=== PATIENT | male | born 1985 | race Caucasian/White ===

== ENCOUNTER 2017-07-10 22:39 | Emergency (ER) | payer MEDICAID, OTHER ==
--- NOTE | 2017-07-10 22:59 | ED PDOC ---
Arrival/HPI - General Chief Complaint: Substance Abuse Time Seen by Provider: 07/10/17 22:41 Historian: Patient - History of Present Illness Narrative History of Present Illness (Text): 07/10/17 22:58 Willy Lawton is a 31 year old male who presents to the Emergency department brought in by EMS for possible overdose tonight. As per EMS, patient was found slumped over in his car unresponsive. Patient was given Narcan in the field with immediate improvement. Patient awake, alert, and oriented x3 on arrival to Emergency department. 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 Patient denies any substance abuse tonight. Patient regularly takes Risperdal, Depakote , Ativan, and Ambien. Patient denies any fever, chills, chest pain, shortness of breath, diarrhea, urinary symptoms, back pain, neck pain, headache, dizziness , or any other complaints. Symptom Onset: Gradual Symptom Course: Unchanged Activities at Onset: Light Context: Home Past Medical History - Provider Review Nursing Documentation Reviewed: Yes - Past History Past History: No Previous - Infectious Disease Hx of Infectious Diseases: None - Tetanus Immunization Tetanus Immunization: Unknown - Past Medical History Past Medical History: No Previous - Psychiatric Hx Bipolar Disorder: Yes Hx Depression: No Hx Substance Use: No - Past Surgical History Past Surgical History: No Previous - Anesthesia Hx Anesthesia: No - Suicidal Assessment Feels Threatened In Home Enviroment: No Family/Social History - Physician Review Nursing Documentation Reviewed: Yes Family/Social History: Unknown Family HX Smoking Status: Current Some Days Smoker Hx Alcohol Use: No Hx Substance Use: No Substance used: denies use Hx Substance Use Treatment: No Allergies/Home Meds Allergies/Adverse Reactions: Allergies No Known Allergies Allergy (Verified 07/11/15 14:31) Home Medications: Home Meds Medication Instructions Recorded Confirmed Unobtainable 07/11/17 07/11/17 Review of Systems - Physician Review All systems were reviewed & negative as marked: Yes - Review of Systems Constitutional: Normal. absent: Fevers Eyes: Normal ENT: Normal Respiratory: Normal. absent: SOB, Cough Cardiovascular: Normal. absent: Chest Pain Gastrointestinal: Nausea, Vomiting. absent: Abdominal Pain, Diarrhea Genitourinary Male: Normal. absent: Dysuria, Frequency, Hematuria, Urinary Output Changes Musculoskeletal: Normal. absent: Back Pain, Neck Pain Skin: Normal. absent: Rash Neurological: Normal. absent: Headache, Dizziness Endocrine: Normal Hemo/Lymphatic: Normal Psychiatric: Other (+possible overdose) Physical Exam Vital Signs Reviewed: Yes Vital Signs Temp Pulse Resp BP Pulse Ox 07/11/17 05:33 98.5 F 78 16 132/78 100 07/11/17 04:00 97.8 F 100 H 15 130/78 97 07/11/17 02:39 97.8 F 84 16 125/87 100 07/11/17 00:39 97.8 F 84 16 133/107 H 98 07/10/17 22:49 97.7 F 109 H 20 133/107 H 96 Temperature: Afebrile Blood Pressure: Normal Pulse: Regular Respiratory Rate: Normal Appearance: Positive for: Well-Appearing, Non-Toxic, Comfortable Pain Distress: None Mental Status: Positive for: Alert and Oriented X 3 - Systems Exam Head: Present: Atraumatic, Normocephalic Pupils: Present: PERRL Extroacular Muscles: Present: EOMI Conjunctiva: Present: Normal Mouth: Present: Moist Mucous Membranes Neck: Present: Normal Range of Motion. No: Meningeal Signs, MIDLINE TENDERNESS , Paraspinal Tenderness Respiratory/Chest: Present: Clear to Auscultation, Good Air Exchange. No: Respiratory Distress, Accessory Muscle Use Cardiovascular: Present: Regular Rate and Rhythm, Normal S1, S2. No: Murmurs Abdomen: Present: Normal Bowel Sounds. No: Tenderness, Distention, Peritoneal Signs Back: Present: Normal Inspection. No: CVA Tenderness, Midline Tenderness, Paraspinal Tenderness Upper Extremity: Present: Normal Inspection. No: Cyanosis, Edema Lower Extremity: Present: Normal Inspection. No: Edema Neurological: Present: GCS=15, CN II-XII Intact, Speech Normal Skin: Present: Warm, Dry, Normal Color. No: Rashes Psychiatric: Present: Alert, Oriented x 3, Normal Insight, Normal Concentration Medical Decision Making ED Course and Treatment: 07/10/17 22:59 Impression: 31 year old male brought in by EMS for possible overdose. Plan: -- EKG -- Chest X-ray -- Labs, cardiac enzymes, alcohol level -- Urinalysis, urine drug screen -- IV fluids -- Zorfan -- Pepcid -- Reassess and disposition Progress Notes: Reviewed EKG, sinus tachycardia at 102 bpm. Non-specific ST/T wave changes. 07/11/17 00:05 Chest X-ray reviewed, shows no acute processes. 07/11/17 00:10 Labs noted. WBC:26.2. Blood cultures, urine cultures ordered. 07/11/17 02:02 CT Head shows: Brain: Unremarkable. No hemorrhage. No significant white matter disease. No edema. Ventricles: Unremarkable. No ventriculomegaly. Bones/joints: Unremarkable. No acute fracture. Soft tissues: Unremarkable. Sinuses: Patchy sinus disease. Mastoid air cells: Unremarkable. No mastoid effusion. Orbits: The globe and lens are intact. IMPRESSION: No evidence of an acute intracranial hemorrhage, midline shift or mass effect is identified. 07/11/17 03:46 Case discussed with medical technologist generalist colon therapist, who is aware and agrees with plan. 07/11/17 03:48 Urine tox screen noted, pt admits to doing cocaine. Case discussed with Dr. Garnica, who is aware and agrees with plan. Accepts pt in to hospitalist service. Pt will go to remote telemetry for syncope and leukocytosis. - Lab Interpretations Microbiology Results: Microbiology Results 07/11/17 02:20 Urine Urine Culture - Final No Growth (<1,000 CFU/ML) 07/11/17 00:30 Blood Blood Culture - Preliminary NO GROWTH AFTER 24 HOURS 07/11/17 00:00 Blood Blood Culture - Preliminary NO GROWTH AFTER 24 HOURS Lab Results: 07/10/17 23:00 07/10/17 23:00 Lab Results 07/11/17 02:20: Urine Color Yellow, Urine Appearance Clear, Urine pH 6.5, Ur Specific [place] 1.020, Urine Protein 30 H, Urine Glucose (UA) Negative, Urine Ketones Negative, Urine Blood Trace-intact H, Urine Nitrate Negative, Urine Bilirubin Negative, Urine Urobilinogen 0.2, Ur Leukocyte Esterase Negative, Urine RBC 1 - 3, Urine WBC 0 - 2, Ur Epithelial Cells 0 - 2 07/11/17 02:20: Urine Opiates Screen Negative, Urine Methadone Screen Negative, Ur Barbiturates Screen Negative, Ur Phencyclidine Scrn Negative, Ur Amphetamines Screen Negative, U Benzodiazepines Scrn Negative, U Oth Cocaine Metabols Positive H, U Cannabinoids Screen Negative 07/10/17 23:00: Alcohol, Quantitative < 10 07/10/17 23:00: WBC 26.3 H*, RBC 5.15, Hgb 16.2, Hct 45.7, MCV 88.7, MCH 31.5, MCHC 35.4, RDW 13.6, Plt Count 316, MPV 9.4 07/10/17 23:00: Sodium 141, Potassium 4.4, Chloride 98, Carbon Dioxide 25, Anion Gap 23 H, BUN 30 H, Creatinine 1.9 H, Est GFR ( Amer) 50, Est GFR ( Non-Af Amer) 41, Random Glucose 242 H, Calcium 9.4, Total Bilirubin 0.4, AST 68 H, ALT 58 H, Alkaline Phosphatase 79, Lactate Dehydrogenase 563, Total Creatine Kinase 119, Troponin I < 0.01, Total Protein 8.3, Albumin 4.6, Globulin 3.7, Albumin/Globulin Ratio 1.3 I have reviewed the lab results: Yes - RAD Interpretation Radiology Orders: 07/10/17 22:59 CHEST PORTABLE [RAD] Stat 07/10/17 23:22 HEAD W/O CONTRAST [CT] Stat Technician Plant And Maintenance: ED Physician - EKG Interpretation Interpreted by ED Physician: Yes Type: 12 lead EKG - Medication Orders Current Medication Orders: Chlordiazepoxide (Librium) 25 mg PO Q8 CUBA PRN Reason: Protocol Folic Acid 1 mg/ Thiamine HCl 100 mg/ Multivitamins/Vitamin C 10 ml/ Dextrose 1 ,011.2 mls @ 100 mls/hr IV .Q10H7M CUBA Lorazepam (Ativan) 2 mg IVP Q4 PRN; Protocol PRN Reason: Agitation Discontinued Medications Chlordiazepoxide (Librium) 50 mg PO Q8H CUBA PRN Reason: Protocol Famotidine (Pepcid) 20 mg IVP STAT STA Stop: 07/10/17 23:04 Last Admin: 07/10/17 23:04 Dose: 20 mg IVP Administration Document 07/10/17 23:04 AB (Rec: 07/11/17 00:23 AB [id number]) Charges for Administration # of IVP Administrations 1 Famotidine (Pepcid) 20 mg PO BID CUBA Folic Acid (Folic Acid) 1 mg PO STAT STA Stop: 07/11/17 07:25 Sodium Chloride (Sodium Chloride 0.9%) 1,000 mls @ 999 mls/hr IV .Q1H1M STA Stop: 07/11/17 00:00 Last Admin: 07/10/17 23:06 Dose: 999 mls/hr eMAR Start Stop Document 07/10/17 23:06 AB (Rec: 07/10/17 23:06 AB [id number]) Intravenous Solution Start Date 07/10/17 Start Time 23:06 End Date 07/11/17 End time 00:06 Total Infusion Time 60 Sodium Chloride (Sodium Chloride 0.9%) 1,000 mls @ 999 mls/hr IV .Q1H1M STA Stop: 07/11/17 01:12 Last Admin: 07/11/17 00:23 Dose: 999 mls/hr eMAR Start Stop Document 07/11/17 00:23 AB (Rec: 07/11/17 00:23 AB [id number]) Intravenous Solution Start Date 07/11/17 Start Time 00:23 End Date 07/11/17 End time 01:23 Total Infusion Time 60 Ceftriaxone Sodium (Rocephin 1 Gram Ivpb) 1 gm in 100 mls @ 200 mls/hr IV ONCE STA PRN Reason: Protocol Stop: 07/11/17 04:11 Last Admin: 07/11/17 04:27 Dose: 200 mls/hr eMAR Start Stop Document 07/11/17 04:27 AB (Rec: 07/11/17 04:28 AB [id number]) Intravenous Solution Start Date 07/11/17 Start Time 04:28 End Date 07/11/17 End time 04:58 Total Infusion Time 30 Sodium Chloride (Sodium Chloride 0.9%) 1,000 mls @ 100 mls/hr IV .Q10H CUBA Lorazepam (Ativan) 1 mg IVP ONCE ONE Stop: 07/11/17 03:39 Last Admin: 07/11/17 03:46 Dose: 1 mg IVP Administration Document 07/11/17 03:46 AB (Rec: 07/11/17 03:48 AB [id number]) Charges for Administration # of IVP Administrations 1 Lorazepam (Ativan) 2 mg IVP Q4H CUBA PRN Reason: Protocol Lorazepam (Ativan) 2 mg IVP Q6H PRN; Protocol PRN Reason: Anxiety Ondansetron HCl (Zofran Inj) 4 mg IVP ONCE ONE Stop: 07/10/17 23:04 Last Admin: 07/10/17 23:11 Dose: 4 mg IVP Administration Document 07/10/17 23:11 AB (Rec: 07/10/17 23:11 AB [id number]) Charges for Administration # of IVP Administrations 1 Pantoprazole Sodium (Protonix Inj) 40 mg IVP STAT STA Stop: 07/11/17 07:23 - Scribe Statement The provider has reviewed the documentation as recorded by the Michael Costa Provider Scribe Attestation: All medical record entries made by the Scribsteven were at my direction and personally dictated by me. I have reviewed the chart and agree that the record accurately reflects my personal performance of the history, physical exam, medical decision making, and the department course for this patient. I have also personally directed, reviewed, and agree with the discharge instructions and disposition. Disposition/Present on Arrival - Present on Arrival Any Indicators Present on Arrival: No History of DVT/PE: No History of Uncontrolled Diabetes: No Urinary Catheter: No History of Decub. Ulcer: No History Surgical Site Infection Following: None - Disposition Have Diagnosis and Disposition been Completed?: Yes Diagnosis: Syncope Disposition: HOSPITALIZED Disposition Time: 04:00 Condition: GOOD Discharge Instructions (ExitCare): Syncope (ED)
[2017-07-10] MEDS ORDERED: Sodium Chloride 0.9% 1,000 ML IV STA (23:00)
[2017-07-10 23:45] LABS: HEMOGLOBIN 16.2 g/dL (14.0-18.0); MEAN CELL VOLUME 88.7 fl (80.0-105.0); MEAN CORPUSCULAR HEMOGLOBIN 31.5 pg (25.0-35.0); MEAN CORPUSCULAR HGB CONC 35.4 g/dl (31.0-37.0); MEAN PLATELET VOLUME 9.4 fl (7.0-11.0); RBC 5.15 10^6/uL (3.5-6.1); RED CELL DISTRIBUTION WIDTH 13.6 % (11.5-14.5)
[2017-07-10 23:50] LABS: WHITE BLOOD COUNT 26.3 10^3/ul (4.5-11.0)
[2017-07-11 00:03] LABS: ALB/GLOB RATIO 1.3 (1.1-1.8); ALBUMIN 4.6 g/dL (3.0-4.8); ALT/SGPT 58 U/L (7-56); AST/SGOT 68 U/L (17-59); BLOOD UREA NITROGEN 30 mg/dL (7-21); CALCIUM 9.4 mg/dL (8.4-10.5); GFR AFRICAN-AMERICAN 50; GFR NON-AFRICAN AMERICAN 41
[2017-07-11] MEDS ORDERED: Sodium Chloride 0.9% 1,000 ML IV STA (00:12)
[2017-07-11 00:14] LABS: TROPONIN I < 0.01 ng/mL
--- NOTE | 2017-07-11 02:01 | CT ---
EXAM: CT Head Without Intravenous Contrast CLINICAL HISTORY: 31 years old, male; Signs and symptoms; Syncope and collapse TECHNIQUE: Axial computed tomography images of the head/brain without intravenous contrast. All CT scans at this facility use one or more dose reduction techniques, viz.: automated exposure control; ma/kV adjustment per patient size (including targeted exams where dose is matched to indication; i.e. head); or iterative reconstruction technique. 346 images are submitted. Coronal and sagittal reformatted images were created and reviewed. Axial reformatted images were created and reviewed. COMPARISON: No relevant prior studies available. FINDINGS: Brain: Unremarkable. No hemorrhage. No significant white matter disease. No edema. Ventricles: Unremarkable. No ventriculomegaly. Bones/joints: Unremarkable. No acute fracture. Soft tissues: Unremarkable. Sinuses: Patchy sinus disease. Mastoid air cells: Unremarkable. No mastoid effusion. Orbits: The globe and lens are intact. IMPRESSION: No evidence of an acute intracranial hemorrhage, midline shift or mass effect is identified.
[2017-07-11 02:55] LABS: PH,URINE 6.5 (4.7-8.0); URINE BILIRUBIN NEGATIVE (NEGATIVE); URINE BLOOD TRACE-INTACT (NEGATIVE); URINE GLUCOSE (UA) NEGATIVE (NEGATIVE); URINE LEUKOCYTE ESTERASE NEGATIVE Leu/uL (NEGATIVE); URINE PROTEIN 30 mg/dL (<30 mg/dL); URINE UROBILINOGEN 0.2 E.U./dL (<1 E.U./dL)
[2017-07-11 03:00] LABS: URINE APPEARANCE CLEAR (CLEAR); URINE COLOR YELLOW (YELLOW)
[2017-07-11 03:36] LABS: URINE EPITHELIAL CELLS 0 - 2 /hpf (0-5); URINE WBC 0 - 2 /hpf (0-6)
[2017-07-11] MEDS ORDERED: cefTRIAXone 1 gm 1 GM/100 ML BAG IV STA (03:42)
[2017-07-11 03:44] LABS: BARBITURATES, UR NEGATIVE (NEGATIVE); BENZODIAZEPINES, UR NEGATIVE (NEGATIVE); OPIATES, UR NEGATIVE (NEGATIVE); PHENCYCLIDINE, UR NEGATIVE (NEGATIVE)
[2017-07-11] MEDS ORDERED: Sodium Chloride 0.9% 1,000 ML IV SCH (05:00)
[2017-07-11 05:38] VITALS: BP 132/78; PULSE 78; RESP 16; TEMP 98.5; O2SAT 100
[2017-07-11] MEDS ORDERED: Folic Acid 1 MG, Thiamine 100 MG, Multivitamin (MVI) 10 ML in Dextrose 5% In Water 1,00... IV SCH (07:30)
--- NOTE | 2017-07-11 07:40 | CP.PCM.HP ---
History of Present Illness - History of Present Illness History of Present Illness: CC: Syncope HPI: Patient is a 31 year old male who presents with emergency department via EMS after being found slumped over in his car earlier in the evening of 07/10/17. Patient is noted to be sedated likely secondary to medication given to him in ED. Patient mother is bedside. Majority of HPI is drawn from medical records, medical staff and family at bedside. Patient is noted to be unreliable historian. According to records/hand off patient was found in his car unresponsive. Patient was given narcan in field and brought to [facility]. Patient was questioned about presenting symptoms and he reports that the last thing he remembered was driving for a short period earlier in the evening, and prior to driving he reports taking "two lanier bumps of cocaine." He indicates he was then later found by EMS. Patient denies chest pain, shortness of breath, tremor, dizziness, trauma, headache, focal weakness, abdominal pain, fever, chills, nausea, vomiting. PMH: anxiety, depression, mitral valve syndrome, polysubstance abuse PSH: Denies SocHx: Tobacco: Light smoker ETOH: 6-10 beers, 1-2 pints of liquor, ID: Cocaine , denies IVDA All: NKDA Meds: - Seroquel - Risperidone PMD: None Present on Admission - Present on Admission Any Indicators Present on Admission: No Review of Systems - Review of Systems All systems: reviewed and no additional remarkable complaints except (otherwise mentioned in HPI) Past Patient History - Infectious Disease Hx of Infectious Diseases: None - Tetanus Immunizations Tetanus Immunization: Unknown - Past Social History Smoking Status: Current Some Days Smoker Alcohol: > 2 Drinks/Day Drugs: Cocaine - PSYCHIATRIC Hx Bipolar Disorder: Yes Hx Depression: No Hx Substance Use: No - SURGICAL HISTORY Hx Surgeries: No - ANESTHESIA Hx Anesthesia: No Meds Allergies/Adverse Reactions: Allergies Allergy/AdvReac Type Severity Reaction Status Date / Time No Known Allergies Allergy Verified 07/11/15 14:31 Physical Exam - Constitutional Appears: Non-toxic - Head Exam Head Exam: ATRAUMATIC, NORMAL INSPECTION, NORMOCEPHALIC - Eye Exam Eye Exam: EOMI Pupil Exam: Miosis - ENT Exam ENT Exam: Mucous Membranes Moist - Respiratory Exam Respiratory Exam: Clear to Auscultation Bilateral, NORMAL BREATHING PATTERN. absent: Rhonchi, Wheezes, Stridor - Cardiovascular Exam Cardiovascular Exam: REGULAR RHYTHM, +S1, +S2 - GI/Abdominal Exam GI & Abdominal Exam: Normal Bowel Sounds, Soft. absent: Guarding, Rigid, Tenderness - Extremities Exam Extremities exam: Positive for: normal inspection, pedal pulses present. Negative for: calf tenderness - Neurological Exam Neurological exam: Alert, Normal Gait, Oriented x3 - Psychiatric Exam Psychiatric exam: Agitated (mild), Anxious - Skin Skin Exam: Normal Color, Warm Additional comments: tattoos present on upper extremities b/l, no track rushing appreciated Results - Vital Signs Recent Vital Signs: Last Vital Signs Temp 98.5 F 07/11/17 05:33 Pulse 78 07/11/17 05:33 Resp 16 07/11/17 05:33 BP 132/78 07/11/17 05:33 Pulse Ox 100 07/11/17 05:33 - Labs Result Diagrams: 07/10/17 23:00 07/10/17 23:00 Labs: Laboratory Results - last 24 hr 07/10/17 07/10/17 07/10/17 23:00 23:00 23:00 WBC 26.3 H* RBC 5.15 Hgb 16.2 Hct 45.7 MCV 88.7 MCH 31.5 MCHC 35.4 RDW 13.6 Plt Count 316 MPV 9.4 Sodium 141 Potassium 4.4 Chloride 98 Carbon Dioxide 25 Anion Gap 23 H BUN 30 H Creatinine 1.9 H Est GFR ( Amer) 50 Est GFR (Non-Af Amer) 41 Random Glucose 242 H Calcium 9.4 Total Bilirubin 0.4 AST 68 H ALT 58 H Alkaline Phosphatase 79 Lactate Dehydrogenase 563 Total Creatine Kinase 119 Troponin I < 0.01 Total Protein 8.3 Albumin 4.6 Globulin 3.7 Albumin/Globulin Ratio 1.3 Urine Color Urine Appearance Urine pH Ur Specific [place] Urine Protein Urine Glucose (UA) Urine Ketones Urine Blood Urine Nitrate Urine Bilirubin Urine Urobilinogen Ur Leukocyte Esterase Urine RBC Urine WBC Ur Epithelial Cells Urine Opiates Screen Urine Methadone Screen Ur Barbiturates Screen Ur Phencyclidine Scrn Ur Amphetamines Screen U Benzodiazepines Scrn U Oth Cocaine Metabols U Cannabinoids Screen Alcohol, Quantitative < 10 07/11/17 07/11/17 02:20 02:20 WBC RBC Hgb Hct MCV MCH MCHC RDW Plt Count MPV Sodium Potassium Chloride Carbon Dioxide Anion Gap BUN Creatinine Est GFR ( Amer) Est GFR (Non-Af Amer) Random Glucose Calcium Total Bilirubin AST ALT Alkaline Phosphatase Lactate Dehydrogenase Total Creatine Kinase Troponin I Total Protein Albumin Globulin Albumin/Globulin Ratio Urine Color Yellow Urine Appearance Clear Urine pH 6.5 Ur Specific [place] 1.020 Urine Protein 30 H Urine Glucose (UA) Negative Urine Ketones Negative Urine Blood Trace-intact H Urine Nitrate Negative Urine Bilirubin Negative Urine Urobilinogen 0.2 Ur Leukocyte Esterase Negative Urine RBC 1 - 3 Urine WBC 0 - 2 Ur Epithelial Cells 0 - 2 Urine Opiates Screen Negative Urine Methadone Screen Negative Ur Barbiturates Screen Negative Ur Phencyclidine Scrn Negative Ur Amphetamines Screen Negative U Benzodiazepines Scrn Negative U Oth Cocaine Metabols Positive H U Cannabinoids Screen Negative Alcohol, Quantitative Assessment & Plan - Assessment and Plan (Free Text) Assessment: 31 year old male with past medical history that includes depression, anxiety, polysubstance abuse who presents with suspected syncopal episode after being found somnolent in car by EMS earlier this evening. Patient evaluated in Ed and found to have leukocytosis and UDS positive for cocaine. Patient is to be admitted for suspected syncopal episode. Plan: 1. Syncopal episode? - Afebrile, no hx of seizures, electrolyte's normal, hx of valvular dz, UDS positive for cocaine, hx of trauma unknown - Cardio consult, appreciate recs - Neuro consult, appreciate recs - EKG, 2D echo - Head CT negative for acute process 2. Leukocytosis - Elevated WBC of 26.3, afebrile - Blood culture, urine culture, UA - f/u monitor 3. Polysubstance abuse - history of heavy ETOH use, cocaine + on UDS - [facility] protocol - Ativan 2mg IV Q4H - Librium 25mg - Banana bag - Folic Acid - continue to monitor 4. CLAIRE - Likely etiology 2/2 hypovolemia - Elevated Cr 1.9, on admission 1.3 - Banana bag plus plan for additional fluids 5. Hx of depression and anxiety - Patient reports taking seroquel and depakote - Psych evaluation DVT/GI ppx - SCD - Pepcid Case and plan discussed with attending - Date & Time Date: 07/11/17 Time: 04:00
--- NOTE | 2017-07-11 08:22 | CP.PCM.DIS ---
Provider - Provider Date of Admission: 07/10/2017 Attending physician: Dr. Garnica Time Spent in preparation of Discharge (in minutes): 20 Hospital Course - Lab Results Lab Results: Most Recent Lab Values WBC 26.3 10^3/ul (4.5-11.0) H* 07/10/17 23:00 RBC 5.15 10^6/uL (3.5-6.1) 07/10/17 23:00 Hgb 16.2 g/dL (14.0-18.0) 07/10/17 23:00 Hct 45.7 % (42.0-52.0) 07/10/17 23:00 MCV 88.7 fl (80.0-105.0) 07/10/17 23:00 MCH 31.5 pg (25.0-35.0) 07/10/17 23:00 MCHC 35.4 g/dl (31.0-37.0) 07/10/17 23:00 RDW 13.6 % (11.5-14.5) 07/10/17 23:00 Plt Count 316 10^3/uL (120.0-450.0) 07/10/17 23:00 MPV 9.4 fl (7.0-11.0) 07/10/17 23:00 Sodium 141 mmol/L (132-148) 07/10/17 23:00 Potassium 4.4 mmol/L (3.6-5.0) 07/10/17 23:00 Chloride 98 mmol/L (98-107) 07/10/17 23:00 Carbon Dioxide 25 mmol/L (21-33) 07/10/17 23:00 Anion Gap 23 (10-20) H 07/10/17 23:00 BUN 30 mg/dL (7-21) H 07/10/17 23:00 Creatinine 1.9 mg/dl (0.8-1.5) H 07/10/17 23:00 Est GFR ( Amer) 50 07/10/17 23:00 Est GFR (Non-Af Amer) 41 07/10/17 23:00 Random Glucose 242 mg/dL (70-110) H 07/10/17 23:00 Calcium 9.4 mg/dL (8.4-10.5) 07/10/17 23:00 Total Bilirubin 0.4 mg/dL (0.2-1.3) 07/10/17 23:00 AST 68 U/L (17-59) H 07/10/17 23:00 ALT 58 U/L (7-56) H 07/10/17 23:00 Alkaline Phosphatase 79 U/L (38-126) 07/10/17 23:00 Lactate Dehydrogenase 563 U/L (333-699) 07/10/17 23:00 Total Creatine Kinase 119 U/L (35-230) 07/10/17 23:00 Troponin I < 0.01 ng/mL 07/10/17 23:00 Total Protein 8.3 g/dL (5.8-8.3) 07/10/17 23:00 Albumin 4.6 g/dL (3.0-4.8) 07/10/17 23:00 Globulin 3.7 gm/dL 07/10/17 23:00 Albumin/Globulin Ratio 1.3 (1.1-1.8) 07/10/17 23:00 Urine Color Yellow (YELLOW) 07/11/17 02:20 Urine Appearance Clear (CLEAR) 07/11/17 02:20 Urine pH 6.5 (4.7-8.0) 07/11/17 02:20 Ur Specific [place] 1.020 (1.005-1.035) 07/11/17 02:20 Urine Protein 30 mg/dL (<30 mg/dL) H 07/11/17 02:20 Urine Glucose (UA) Negative mg/dL (NEGATIVE) 07/11/17 02:20 Urine Ketones Negative mg/dL (NEGATIVE) 07/11/17 02:20 Urine Blood Trace-intact (NEGATIVE) H 07/11/17 02:20 Urine Nitrate Negative (NEGATIVE) 07/11/17 02:20 Urine Bilirubin Negative (NEGATIVE) 07/11/17 02:20 Urine Urobilinogen 0.2 E.U./dL (<1 E.U./dL) 07/11/17 02:20 Ur Leukocyte Esterase Negative [place]/uL (NEGATIVE) 07/11/17 02:20 Urine RBC 1 - 3 /hpf (0-2) 07/11/17 02:20 Urine WBC 0 - 2 /hpf (0-6) 07/11/17 02:20 Ur Epithelial Cells 0 - 2 /hpf (0-5) 07/11/17 02:20 Urine Opiates Screen Negative (NEGATIVE) 07/11/17 02:20 Urine Methadone Screen Negative (NEGATIVE) 07/11/17 02:20 Ur Barbiturates Screen Negative (NEGATIVE) 07/11/17 02:20 Ur Phencyclidine Scrn Negative (NEGATIVE) 07/11/17 02:20 Ur Amphetamines Screen Negative (NEGATIVE) 07/11/17 02:20 U Benzodiazepines Scrn Negative (NEGATIVE) 07/11/17 02:20 U Oth Cocaine Metabols Positive (NEGATIVE) H 07/11/17 02:20 U Cannabinoids Screen Negative (NEGATIVE) 07/11/17 02:20 Alcohol, Quantitative < 10 mg/dL (0-10) 07/10/17 23:00 - Hospital Course Hospital Course: Patient is a 31 year old male with past medical history of anxiety, depression, polysubstance abuse who presents to [facility] ED via EMS after being found somnolent in his vehicle. Patient was evaluated in ED and found to be alert and oriented x3, UDS positive for cocaine, Head CT showing no evidence of acute intracranial hemorrhage. After patient was to be admitted to hospital he requested to be signed out AMA. Patient was educated on the benefits of staying for further medical evaluation and treatment of his presenting symptoms, as well as the risks for signing out which included but were not limited to further deterioration of his current medical condition, paralysis and . Patient along with family were in agreement with continuing to sign out AMA and accepted risks explained to them. Patient was advised to return to nearest emergency department if his symptoms returned or worsened. - Date & Time of H&P Date of H&P: 07/11/17 Time of H&P: 04:00 Discharge Exam - Additional Findings Additional findings: Patient refused physical exam prior to signing out AMA Discharge Plan - Follow Up Plan Condition: GOOD Disposition: AGAINST MEDICAL ADVICE
--- NOTE | 2017-07-11 08:27 | CP.PCM.PCO ---
Physician Communication Note - Physician Communication Note Physician Communication Note: pt was discharged
--- NOTE | 2017-07-11 08:52 | RAD ---
HISTORY: Fever. COMPARISON: No prior. FINDINGS: LUNGS: No active pulmonary disease. PLEURA: No significant pleural effusion identified, no pneumothorax apparent. CARDIOVASCULAR: Normal. OSSEOUS STRUCTURES: No significant abnormalities. VISUALIZED UPPER ABDOMEN: Normal. OTHER FINDINGS: None. IMPRESSION: No active disease.
--- NOTE | 2017-07-11 17:14 | CARD ---
APPROVED REPORT EKG Measurement Heart [id number] <Conclusion> Sinus tachycardia Rightward axis Borderline ECG
== END 2017-07-11 05:33 | disposition left against medical advice (07) ==
LOC: ED 22:39 → UNDOADMOB 07-11 04:07 → ERH 07-11 04:07 → ED 07-11 05:33
DX: R55 Syncope and collapse (principal); F17.210 Nicotine dependence, cigarettes, uncomplicated
CPT/HCPCS: 70450; 71045; 80053; 80320; 80324; 80345; 80346; 80349; 80353; 80358; 80361; 81001; 82550; 83615; 83992; 84484; 85027; 87040; 87086; 93005; 96361; 96365; 96375; 99285; J0696; J2060; J2405; J7040